=== PATIENT | male | born 1990 | race African-American/Black ===

== ENCOUNTER → 2020-06-06 | Outpatient (CLI) | payer MEDICARE, OTHER ==
[~2020-06-06] MED LIST: AMOXICILLIN500 M1 PO; DILANTIN 100 M100 MG PO; DILANTIN CHEWAB50 MG PO; IBU600 MG PO; IBUPROFEN800 MG PO; KEPPRA750 MG PO; NAPROSYN500 MG PO; PENVEE K 500 M500 MG PO; TORADOL 10 MG T10 MG PO; VIBRAMYCIN100 MG PO
[2020-06-06 12:53] LABS: HEMOGLOBIN 15.5 gm/dl (14.0-17.5); RED BLOOD COUNT 5.04 M/UL (4.20-5.50); WHITE BLOOD COUNT 2.7 K/UL (4.5-11.0)
[2020-06-06 13:09] LABS: BUN/CREATININE RATIO 12 (0-10)
[2020-06-07 16:11] LABS: AMPHETAMINES, URINE Negative ng/mL (Cutoff=1000); BARBITURATE Negative ng/mL (Cutoff=200); BENZODIAZEPINES Negative ng/mL (Cutoff=200); CANNABINOIDS Negative ng/mL (Cutoff=20); COCAINE (METABOLITE) Negative ng/mL (Cutoff=300); CREATININE 250.1 mg/dL (20.0-300.0); MEPERIDINE Negative ng/mL (Cutoff=200); METHADONE Negative ng/mL (Cutoff=300); OPIATES Negative ng/mL (Cutoff=300); PHENCYCLIDINE Negative ng/mL (Cutoff=25); PROPOXYPHENE Negative ng/mL (Cutoff=300)
== END ==
LOC: LAB 11:45
PROVIDERS: Nurse Practitioner Family
DX: E55.9 Vitamin D deficiency, unspecified (principal); R44.3 Hallucinations, unspecified; R56.9 Unspecified convulsions
CPT/HCPCS: 36415; 80053; 80185; 80307; 82570; 82607; 84156; 84439; 84443; 85025

== ENCOUNTER 2020-06-20 11:50 | Emergency (ER) | payer MEDICARE, OTHER ==
[~2020-06-20 11:50] MED LIST changes: -IBUPROFEN800 MG PO; -KEPPRA750 MG PO; -NAPROSYN500 MG PO; -PENVEE K 500 M500 MG PO; -VIBRAMYCIN100 MG PO
[2020-06-20 12:37] LABS: HEMOGLOBIN 15.8 gm/dl (14.0-17.5); RED BLOOD COUNT 5.3 M/UL (4.20-5.50); WHITE BLOOD COUNT 2.6 K/UL (4.5-11.0)
[2020-06-20 13:15] LABS: BUN/CREATININE RATIO 8 (0-10)
[2020-06-20] MEDS ORDERED: KEPPRA750 MG PO (16:03)
== END 2020-06-20 16:22 | disposition home or self-care (01) ==
LOC: ER1 11:50
PROVIDERS: Physician Assistant Medical
DX: G40.909 Epilepsy, unspecified, not intractable, without status epilepticus (principal); F17.210 Nicotine dependence, cigarettes, uncomplicated; Z88.8 Allergy status to other drugs, medicaments and biological substances
CPT/HCPCS: 70450; 71045; 72125; 72128; 72131; 72170; 80053; 80185; 80307; 81001; 82550; 82553; 83874; 84439; 84443; 84484; 85025; 85610; 93005; 96365; 99285; J1953; J7030

== ENCOUNTER 2020-06-27 14:47 | Emergency (ER) | payer MEDICARE, OTHER ==
[~2020-06-27 14:47] MED LIST changes: +KEPPRA750 MG PO
[2020-06-27 16:23] LABS: HEMOGLOBIN 15.1 gm/dl (14.0-17.5); RED BLOOD COUNT 4.78 M/UL (4.20-5.50); WHITE BLOOD COUNT 3.2 K/UL (4.5-11.0)
[2020-06-27 16:43] LABS: BUN/CREATININE RATIO 7 (0-10)
== END 2020-06-27 18:30 | disposition home or self-care (01) ==
LOC: ER1 14:47
PROVIDERS: Family Medicine
DX: R07.89 Other chest pain (principal); R53.1 Weakness; I44.0 Atrioventricular block, first degree
CPT/HCPCS: 36415; 70450; 71045; 80053; 80185; 82550; 82553; 83874; 84484; 85025; 93005; 99285

== ENCOUNTER 2020-07-20 15:19 | Emergency (ER) | payer MEDICARE, OTHER ==
[2020-07-20 17:02] LABS: HEMOGLOBIN 15.4 gm/dl (14.0-17.5); RED BLOOD COUNT 4.89 M/UL (4.20-5.50); WHITE BLOOD COUNT 9.5 K/UL (4.5-11.0)
[2020-07-20 17:39] LABS: BUN/CREATININE RATIO 10 (0-10)
== END 2020-07-20 19:51 | disposition home or self-care (01) ==
LOC: ER1 15:19
PROVIDERS: Emergency Medicine
DX: G40.409 Other generalized epilepsy and epileptic syndromes, not intractable, without status epilepticus (principal); S01.511A Laceration without foreign body of lip, initial encounter; F17.210 Nicotine dependence, cigarettes, uncomplicated; Z79.899 Other long term (current) drug therapy; Z23 Encounter for immunization; W22.8XXA Striking against or struck by other objects, initial encounter
CPT/HCPCS: 12011; 70450; 70486; 73080; 73562; 80053; 80185; 80307; 81001; 82550; 82553; 83735; 83874; 84484; 85025; 90471; 90715; 93005; 96365; 96366; 96375; 99285; J1165; J2405; J7030; Q2009

== ENCOUNTER 2020-08-10 14:16 | Emergency (ER) | payer MEDICARE, OTHER ==
[2020-08-10] MEDS ORDERED: VIBRAMYCIN100 MG PO (15:39)
[2020-08-12 19:11] LABS: CHLAMYDIA TRACHOMATIS, NAA Negative (Negative); NEISSERIA GONORRHOEAE, NAA Negative (Negative)
== END 2020-08-10 16:05 | disposition home or self-care (01) ==
LOC: ER1 14:16
PROVIDERS: Preventive Medicine Occupational Medicine
DX: N48.89 Other specified disorders of penis (principal); F17.210 Nicotine dependence, cigarettes, uncomplicated
CPT/HCPCS: 81001; 87086; 99284

== ENCOUNTER 2020-08-30 21:08 | Emergency (ER) | payer MEDICARE, OTHER ==
[~2020-08-30 21:08] MED LIST changes: +VIBRAMYCIN100 MG PO
[2020-08-30] MEDS ORDERED: PENVEE K 500 M500 MG PO (21:36)
[2020-08-30] MEDS ORDERED: NAPROSYN500 MG PO (21:36)
== END 2020-08-30 21:55 | disposition home or self-care (01) ==
LOC: ER1 21:08
DX: K02.9 Dental caries, unspecified (principal); K05.00 Acute gingivitis, plaque induced
CPT/HCPCS: 99282

== ENCOUNTER 2020-10-11 10:04 | Emergency (ER) | payer MEDICARE, OTHER ==
[~2020-10-11 10:04] MED LIST changes: +NAPROSYN500 MG PO; +PENVEE K 500 M500 MG PO
[2020-10-11 11:33] LABS: HEMOGLOBIN 14.8 gm/dl (14.0-17.5); RED BLOOD COUNT 4.75 M/UL (4.20-5.50); WHITE BLOOD COUNT 2.5 K/UL (4.5-11.0)
[2020-10-11 12:07] LABS: BUN/CREATININE RATIO 6 (0-10)
[2020-10-11] MEDS ORDERED: IBUPROFEN800 MG PO (15:47)
== END 2020-10-11 16:06 | disposition home or self-care (01) ==
LOC: ER1 10:04
PROVIDERS: Physician Assistant
DX: R07.89 Other chest pain (principal); D72.819 Decreased white blood cell count, unspecified; F17.200 Nicotine dependence, unspecified, uncomplicated
CPT/HCPCS: 71045; 80053; 82550; 82553; 83690; 83874; 84484; 85025; 85379; 93005; 99285

== ENCOUNTER 2021-04-02 14:42 | Emergency (ER) | payer MEDICARE, OTHER ==
[~2021-04-02 14:42] MED LIST changes: +IBUPROFEN800 MG PO
[2021-04-02 16:53] LABS: BUN/CREATININE RATIO 10 (0-10)
[2021-04-02 17:09] LABS: HEMOGLOBIN 13.8 gm/dl (14.0-17.5); RED BLOOD COUNT 4.59 M/UL (4.20-5.50)
== END 2021-04-02 17:35 | disposition home or self-care (01) ==
LOC: ER1 14:42
PROVIDERS: Physician Assistant
DX: G40.409 Other generalized epilepsy and epileptic syndromes, not intractable, without status epilepticus (principal)
CPT/HCPCS: 80053; 85025; 99284

== ENCOUNTER → 2021-04-04 | Outpatient (CLI) | payer MEDICARE, OTHER | LOC: RAD 10:11 | DX: S79.911A Unspecified injury of right hip, initial encounter (principal) | CPT/HCPCS: 73502 ==

== ENCOUNTER 2021-07-18 13:16 | Emergency (ER) | payer MEDICARE, OTHER ==
[2021-07-18 14:30] LABS: HEMOGLOBIN 14.5 gm/dl (14.0-17.5); RED BLOOD COUNT 4.83 M/UL (4.20-5.50); WHITE BLOOD COUNT 2.9 K/UL (4.5-11.0)
[2021-07-18 14:38] LABS: BUN/CREATININE RATIO 7 (0-10)
[2021-07-18] MEDS ORDERED: PREDNISONE20 MG PO (16:55)
== END 2021-07-18 17:07 | disposition home or self-care (01) ==
LOC: ER1 13:16
PROVIDERS: Nurse Practitioner
DX: J40 Bronchitis, not specified as acute or chronic (principal); Z20.822 Contact with and (suspected) exposure to COVID-19
CPT/HCPCS: 0240U; 71045; 80053; 82550; 82553; 84484; 85025; 93005; 99285

== ENCOUNTER 2021-08-15 19:45 | Emergency (ER) | payer MEDICARE, OTHER ==
[~2021-08-15 19:45] MED LIST changes: +PREDNISONE20 MG PO
[2021-08-15 20:20] LABS: HEMOGLOBIN 14.9 gm/dl (14.0-17.5); RED BLOOD COUNT 4.87 M/UL (4.20-5.50); WHITE BLOOD COUNT 3.1 K/UL (4.5-11.0)
[2021-08-15 20:44] LABS: BUN/CREATININE RATIO 12 (0-10)
== END 2021-08-16 06:47 | disposition home or self-care (01) ==
LOC: ER1 19:45
PROVIDERS: Family Medicine
DX: S70.01XA Contusion of right hip, initial encounter (principal); W22.8XXA Striking against or struck by other objects, initial encounter
CPT/HCPCS: 70450; 71045; 72125; 73030; 73502; 73610; 80053; 82550; 82553; 83605; 84439; 84443; 84484; 85025; 85610; 85730; 86850; 86900; 86901; 93005; 96374; 96375; 99284; G0480; J1885; J2270; J2405

== ENCOUNTER 2021-10-15 10:29 | Emergency (ER) | payer MEDICARE, OTHER | END 2021-10-15 13:10 | disposition home or self-care (01) | LOC: ER1 10:29 | DX: M25.511 Pain in right shoulder (principal); R06.02 Shortness of breath | CPT/HCPCS: 73030; 93005; 99283 ==

== ENCOUNTER 2021-11-20 19:52 | Emergency (ER) | payer MEDICARE, OTHER ==
[2021-11-20 21:30] LABS: HEMOGLOBIN 15.5 gm/dl (14.0-17.5); RED BLOOD COUNT 4.97 M/UL (4.20-5.50)
[2021-11-20 22:20] LABS: BUN/CREATININE RATIO 8 (0-10)
[2021-11-20] MEDS ORDERED: IBUPROFEN800 MG PO (22:46)
== END 2021-11-20 23:03 | disposition home or self-care (01) ==
LOC: ER1 19:52
PROVIDERS: Physician Assistant
DX: R51.9 Headache, unspecified (principal)
CPT/HCPCS: 70450; 80053; 85025; 99284

== ENCOUNTER 2022-01-09 09:16 | Emergency (ER) | payer MEDICARE, OTHER ==
[2022-01-10] MEDS ORDERED: IBUPROFEN600 MG PO (09:50)
== END 2022-01-09 09:38 | disposition left against medical advice (07) ==
LOC: ER1 09:16
DX: M79.602 Pain in left arm (principal)
CPT/HCPCS: 93005; 99281

== ENCOUNTER 2022-01-10 08:57 | Emergency (ER) | payer MEDICARE, OTHER ==
[2022-01-10] MEDS ORDERED: IBUPROFEN600 MG PO (09:50)
== END 2022-01-10 10:14 | disposition home or self-care (01) ==
LOC: ER1 08:57
DX: M77.8 Other enthesopathies, not elsewhere classified (principal); M84.48XA Pathological fracture, other site, initial encounter for fracture
CPT/HCPCS: 73080; 99283